=== PATIENT | female | born 1950 | race Caucasian/White ===

== ENCOUNTER 2019-09-14 06:12 | Inpatient (IN) | payer MEDICARE, OTHER ==
[~2019-09-14] VITALS: Ht 167.6 cm; Wt 55.8 kg
[2019-09-14] VITALS (17 sets, daily range): BP systolic 90–141; BP diastolic 39–109
[2019-09-14 07:01] LABS: HEMATOCRIT 35.3 % (37.0-47.0); HEMOGLOBIN 11.6 gm/dL (12.0-15.0); MCH 29.3 pg (26.0-34.0); MCHC 32.8 g/dL (28.0-37.0); MCV 89.2 fL (80.0-100.0); MPV 7.2 fl. (7.2-11.1); NUCLEATED RBCS 0 /100WBC; PLATELET COUNT* 286 thou/uL (150-400); RBC 3.95 mil/uL (4.20-5.00); RDW-CV 20.4 % (10.5-14.5); WBC 7.2 thou/uL (4.0-11.0)
[2019-09-14 07:12] LABS: CALCIUM 8.4 mg/dL (8.5-10.1); CREATININE 2.1 mg/dL (0.6-1.3); POTASSIUM 4.9 mmol/L (3.5-5.1); PROTIME 10.4 Seconds (9.20-11.50)
[2019-09-14 07:20] LABS: ALBUMIN 2.4 g/dL (3.4-5.0); TOTAL BILIRUBIN 1.1 mg/dL (<0.1-1.0); TOTAL PROTEIN 6.3 g/dL (6.4-8.2)
[2019-09-14 07:50] LABS: ABSOLUTE LYMPHOCYTES 0.4 thou/uL (0.8-5.3); ABSOLUTE MONOCYTES 0.1 thou/uL (0.0-1.2); ABSOLUTE NEUTROPHILS 6.7 thou/uL (1.6-8.1); PLATELET ESTIMATE ADEQUATE
[2019-09-14 07:51] LABS: ANISOCYTOSIS 1+; POIKILOCYTOSIS 1+
--- NOTE | 2019-09-14 08:19 | NUR ---
patient sat 71% on room air, patient denies shortness of breath. patient placed on 3L NC now sats are 98%
[2019-09-14 09:10] LABS: BE -5.9 mmol/L (-2 to +3); PCO2 33.8 mmHg (35.0-45.0)
[2019-09-14 09:12] LABS: PO2 129.1 mmHg (75.0-100.0)
[2019-09-14 10:05] LABS: MAGNESIUM 1.7 mg/dL (1.8-2.4); PHOSPHORUS* 4.7 mg/dL (2.5-4.9)
[2019-09-14 11:58] LABS: URINE BLOOD NEGATIVE (Negative); URINE CLARITY CLEAR; URINE COLOR YELLOW; URINE GLUCOSE-RANDOM 3+ (Negative); URINE KETONES 1+ (Negative); URINE LEUKOCYTES-REFLEX TRACE (Negative); URINE NITRITE-REFLEX NEGATIVE (Negative); URINE PROTEIN NEGATIVE (Negative); URINE SPECIFIC GRAVITY >= 1.030 (1.005-1.030); URINE UROBILINOGEN 0.2 E.U./dl (0.2-1.0)
[2019-09-14 12:00] LABS: ICTOTEST (BILI CONFIRMATORY) Negative (Negative); URINE BILIRUBIN 1+ (Negative)
[2019-09-14 12:08] LABS: SQUAMOUS 0-3 Few /LPF (0-3)
[2019-09-14 12:09] LABS: BACTERIA-REFLEX 1-9 Few /HPF (None Seen); CASTS None Seen /LPF (None Seen); CRYSTALS None Seen /LPF (None Seen); MUCUS 0-3 Light strn/LPF (None Seen); URINE RBC 0-2 Rare /HPF (0-2); URINE WBC-REFLEX 6-15 Few /HPF (0-5)
[2019-09-14 13:28] LABS: CALCIUM 7.9 mg/dL (8.5-10.1); CREATININE 2.1 mg/dL (0.6-1.3); POTASSIUM 5.3 mmol/L (3.5-5.1)
[2019-09-14] MEDS ORDERED: LIPITOR40 MG PO (15:11)
[2019-09-14] MEDS ORDERED: CARVEDILOL12.5 MG PO (15:12)
[2019-09-14] MEDS ORDERED: PLAVIX 75 MG TA75 M1 PO (15:13)
[2019-09-14] MEDS ORDERED: DULOXETINE HCL30 MG PO (15:14)
[2019-09-14] MEDS ORDERED: LISINOPRIL2.5 MG PO (15:15)
[2019-09-14] MEDS ORDERED: LEVO-T100 MCG PO (15:17)
[2019-09-14] MEDS ORDERED: OMEPRAZOLE 20 M20 M1 PO (15:25)
[2019-09-14] MEDS ORDERED: TRAZODONE HCL100 MG PO (15:26)
[2019-09-14] MEDS ORDERED: ZANTAC 150MG T150 M1 PO (15:26)
[2019-09-14] MEDS ORDERED: ASA81BEC PO (15:27)
[2019-09-14] MEDS ORDERED: PROCHAMBER1 EACH INH (15:33)
--- NOTE | 2019-09-14 16:40 | 2DMMODE ---
[place] [address] 2 D/M-MODE ECHOCARDIOGRAM Name: BELEN MCNEILL Room: 001[facility] IN .R.#: [id number] Admission: 09/14/19 Attend Phys: Arturo Bradford Discharge: Date of : 54 Date of Service: 09/14/19 1639 Report #: [id number] THIS REPORT FOR: cc: FAM - No family physician/PCP FAM - No family physician/PCP Bill Maharaj MD [facility] ~ APPROVED REPORT Study performed: 09/14/2019 15:54:38 EXAM: Comprehensive 2D, Doppler, and color-flow Echocardiogram Patient Location: In-Patient Room #: 001 Status: routine BSA: 1.63 HR: 100 bpm BP: 119/46 mmHg Rhythm: NSR Other Information Study Quality: Good Indications CAD 2D Dimensions IVSd: 11.15 (7-11mm) LVOT Diam: 19.38 (18-24mm) LVDd: 38.73 mm PWd: 9.02 (7-11mm) Ascending Ao: 26.88 (22-36mm) LVDs: 22.53 (25-40mm) Aortic Root: 28.99 mm Volumes Left Atrial Volume (Systole) LA ESV Index: 28.80 mL/m2 Aortic Valve AoV Peak Prashant.: 1.42 m/s AO Peak Gr.: 8.11 mmHg LVOT Max P.46 mmHg AO Mean Gr.: 4.52 mmHg LVOT Mean P.37 mmHg LVOT Max V: 1.27 m/s AO V2 VTI: 21.77 cm LVOT Mean V: 0.85 m/s ELPIDIO (VTI): 3.32 cm2 LVOT V1 VTI: 24.52 [place] [address] 2 D/M-MODE ECHOCARDIOGRAM Name: BELEN MCNEILL Room: [address]#: [id number] Admission: 09/14/19 Attend Phys: Arturo Bradford Discharge: Date of : 54 Date of Service: 09/14/19 1639 Report #: [id number] Mitral Valve E/A Ratio: 0.82 MV Decel. Time: 248.63 ms MV E Max Prashant.: 0.91 m/s MV PHT: 72.10 ms MVA (PHT): 3.05 cm2 TDI E/Lateral E': 11.38 E/Medial E': 11.38 Medial E' Prashant.: 0.08 m/s Lateral E' Prashant.: 0.08 m/s Pulmonary Valve PV Peak Prashant.: 1.87 m/s PV Peak Gr.: 13.94 mmHg Left Ventricle The left ventricle is normal size. There is normal LV segmental wall motion. There is normal left ventricular wall thickness. Left ventricular systolic function is normal. The left ventricular ejection fraction is within the normal range. LVEF is 60-65%. Grade I - abnormal relaxation pattern. Right Ventricle The right ventricle is normal size. The right ventricular systolic function is normal. Atria The left atrium size is normal. The right atrium size is normal. Aortic Valve Mild aortic valve sclerosis. No aortic regurgitation is present. There is no aortic valvular stenosis. Mitral Valve Mild mitral annular calcification. There is no mitral valve regurgitation noted. No evidence of mitral valve stenosis. Tricuspid Valve The tricuspid valve is normal in structure. Unable to assess PA pressure. Trace tricuspid regurgitation. Pulmonic Valve The pulmonary valve is normal in structure. There is no pulmonic [place]vular [place] [address] 2 D/M-MODE ECHOCARDIOGRAM Name: BELEN MCNEILL Room: [address] IN [facility]#: [id number] Admission: 09/14/19 Attend Phys: Arturo Bradford Discharge: Date of : 54 Date of Service: 09/14/19 1639 Report #: [id number] Great Vessels The aortic root is normal in size. IVC is normal in size and collapses >50% with inspiration. Pericardium There is no pericardial effusion. <Conclusion> The left ventricle is normal size. There is normal left ventricular wall thickness. Left ventricular systolic function is normal. The left ventricular ejection fraction is within the normal range. LVEF is 60-65%. Grade I - abnormal relaxation pattern. The right ventricle is normal size. The left atrium size is normal. Mild aortic valve sclerosis. No aortic regurgitation is present. There is no aortic valvular stenosis. Mild mitral annular calcification. There is no mitral valve regurgitation noted. No evidence of mitral valve stenosis. The tricuspid valve is normal in structure. IVC is normal in size and collapses >50% with inspiration. There is no pericardial effusion. There is normal LV segmental wall motion. <ELECTRONICALLY SIGNED> By: Bill Maharaj MD, FACC 09/14/19 1639 [id number] Bill Maharaj MD, FACC /INF
[2019-09-14 18:14] LABS: CALCIUM 7.7 mg/dL (8.5-10.1)
--- NOTE | 2019-09-14 18:44 | NUR ---
PATIENT PROGRESING WELL TOWARDS GOALS. SUGARS DECREASING AT AN ACCETABLE RATE. DKA PROTOCOL FOLLOWED, FLUIDS CHANGED AT THIS TIME PER LABS. PATIENT NPO AT THIS TIME. ALL QUESTIONS ANSWERED. DAUGHTER AND PCP UPDATED. DAUGHTER ASKED IF WE COULD FAX ORDERS TO PCP AND PULMONARY DOCTOR AFTER SHE D/C. WILL PASS ON IN REPORT TO ONCOMING NURSE. PCP DR MANI ARMENTA FAX #[phone] LISSETTE BAILEY FAX# [phone] HOME MEDICATIONS STILL NEED TO BE REORDERED BY DR COLEMAN.
[2019-09-14 21:24] LABS: CALCIUM 7.8 mg/dL (8.5-10.1); CREATININE 1.8 mg/dL (0.6-1.3); POTASSIUM 4.2 mmol/L (3.5-5.1)
[2019-09-15] VITALS (8 sets, daily range): BP systolic 88–176; BP diastolic 47–96
--- NOTE | 2019-09-15 02:02 | NUR ---
PT. BLADDER SCANNED AGAIN, >600. PHILLIPS CATHETER PLACED WITH DIFFICULTY 18 SURINAMESE. URINE DRAINING WELL AT THIS TIME.
[2019-09-15 02:42] LABS: ABSOLUTE LYMPHOCYTES 0.5 thou/uL (0.8-5.3); ABSOLUTE MONOCYTES 0.7 thou/uL (0.0-1.2); ABSOLUTE NEUTROPHILS 5.8 thou/uL (1.6-8.1); BASOPHILS 0.4 %; EOSINOPHILS 0.6 %; HEMATOCRIT 29.6 % (37.0-47.0); LYMPHOCYTES 6.6 %; MCHC 33.8 g/dL (28.0-37.0); MCV 85.7 fL (80.0-100.0); MONOCYTES 9.8 %; MPV 6.7 fl. (7.2-11.1); NUCLEATED RBCS 0 /100WBC; PLATELET COUNT* 234 thou/uL (150-400); POLYS 82.6 %; RBC 3.45 mil/uL (4.20-5.00)
[2019-09-15 03:02] LABS: CALCIUM 7.5 mg/dL (8.5-10.1); CREATININE 1.6 mg/dL (0.6-1.3)
[2019-09-15 03:04] LABS: POTASSIUM 5.2 mmol/L (3.5-5.1)
[2019-09-15 03:06] LABS: ALBUMIN 2.1 g/dL (3.4-5.0); CALCIUM 7.3 mg/dL (8.5-10.1); CREATININE 1.6 mg/dL (0.6-1.3); POTASSIUM 5.1 mmol/L (3.5-5.1); TOTAL BILIRUBIN 0.6 mg/dL (<0.1-1.0); TOTAL PROTEIN 5.6 g/dL (6.4-8.2)
--- NOTE | 2019-09-15 05:42 | NUR ---
PT. SUDDENLY RESTLESS/STATED SHE CAN'T SLEEP AT 033. HAD SLEPT WELL SINCE 2129. ANXIOUS, NAUSEA. REASSURANCE GIVEN. STATED IT IS NOT RECOMMENDED TO TAKE A SLEEPING PILL AT 0330. VERBAL UNDERSTANDING GIVEN. IVF REMAIN INFUSING. INSULIN GTT INFUSING. PHILLIPS CATHETER DRAINING WELL. WILL CONTINUE TO MONITOR.
[2019-09-15 06:51] LABS: CALCIUM 7.4 mg/dL (8.5-10.1); CREATININE 1.5 mg/dL (0.6-1.3); PHOSPHORUS* 2.6 mg/dL (2.5-4.9); POTASSIUM 4.9 mmol/L (3.5-5.1)
[2019-09-15 09:04] LABS: URINE BILIRUBIN NEGATIVE (Negative); URINE BLOOD 3+ (Negative); URINE CLARITY CLEAR; URINE COLOR YELLOW; URINE GLUCOSE-RANDOM NEGATIVE (Negative); URINE KETONES NEGATIVE (Negative); URINE LEUKOCYTES 1+ (Negative); URINE NITRITE NEGATIVE (Negative); URINE PROTEIN NEGATIVE (Negative); URINE SPECIFIC GRAVITY 1.015 (1.005-1.030); URINE UROBILINOGEN 0.2 E.U./dl (0.2-1.0)
[2019-09-15 09:23] LABS: CASTS None Seen /LPF (None Seen); CRYSTALS None Seen /LPF (None Seen); SQUAMOUS 0-3 Few /LPF (0-3); URINE RBC 0-2 Rare /HPF (0-2); URINE WBC 6-15 Few /HPF (0-5)
[2019-09-15 10:42] LABS: CALCIUM 7.8 mg/dL (8.5-10.1); CREATININE 1.5 mg/dL (0.6-1.3); POTASSIUM 4.8 mmol/L (3.5-5.1)
--- NOTE | 2019-09-15 10:43 | NUR ---
Nutrition: Pt admitted with DKA. Per ICU rounds, pt has had IDDM for ~60yrs, has insulin pump. She got ill and BG went up. Assessed for nsg risk 2 points. Wt is 123#, was 115# at admit with severe volume depletion. She is eating well now. Diet advanced. No nutrition education needed. BG better, alb 2.1, prealb 12. Low nutrition risk.
--- NOTE | 2019-09-15 11:06 | NUR ---
CM ASSESSMENT: PT LIVES HOME ALONE. SHE HAS AN INSULIN PUMP AND CONTROLS HER BG WELL. PT IS INDEPENDENT WITH ADLS. SHE DRIVES AND DOES NOT USE ASSISTIVE DEVICES. SHE STATES SHE GOT SICK AND HER BG INCREASED. PT GETS HER MEDS THROUGH [facility] INCLUDING INSULIN PUMP SUPPLIES.CM WILL CONTINUE TO FOLLOW IF NEEDED
[2019-09-15 14:00] LABS: CREATININE 1.4 mg/dL (0.6-1.3); POTASSIUM 4.9 mmol/L (3.5-5.1)
--- NOTE | 2019-09-15 17:37 | NUR ---
PT ASSESSMENT CHARTED. VSS THROUGHOUT SHIFT, BP IMPROVED. UP WITH 1 ASSIST IN ROOM. PAIN RATED 5/10 AT THE HIGHEST IN HER BACK IMPROVED WITH MOVEMENT AROUND THE ROOM. PT TOLERATING REGULAR DIET WITHOUT DIFFICULTY. NO REPORTS OF NAUSEA. BLOOD SUGARS BEING WELL CONTROLLED WITH SSI. NO OTHER COMPLAINTS. REPORT GIVEN TO ELVIA TREVINO AND TRANSFERED TO ROOM 309 AT 1715.
--- NOTE | 2019-09-15 18:26 | NUR ---
PT TRANSFERED TO ROOM 309 AT 1715. PT ALERT AND ORIENTED X4. ACCU CHECK, INSULIN GIVEN PER ORDERS WITH DINNER. PT DENIES ANY CONCERNS. SITTING IN CHAIR, CALL LIGHT WITHIN REACH. WILL CONTINUE PLAN OF CARE
--- NOTE | 2019-09-16 02:35 | NUR ---
PT'S BG WAS CRITICAL LOW BEGINNING OF SHIFT ON POC. STAT LAB CONFIRMED BG TO BE 27. HYPOGLYCEMIA PROTOCOL INITIATED. BG CAME BACK UP TO 80 ON POC. STAT LAB AGAIN TO VERIFY LEVEL SHOWED BG 108. HS INSULIN NOT GIVEN THIS SHIFT. WILL CONTINUE TO MONITOR.
[2019-09-16 05:12] LABS: CALCIUM 7.5 mg/dL (8.5-10.1); MAGNESIUM 1.5 mg/dL (1.8-2.4); POTASSIUM 4.4 mmol/L (3.5-5.1)
--- NOTE | 2019-09-16 05:31 | NUR ---
PT ALERT AND ORIENTED. STB ASSIST. HYPOGLYCEMIA TREATED PER PROTOCOL. TYLENOL GIVEN TIS AM. PT'S DTR CALLED TO CHECK ON PT. PER PT'S DTR, PT TAKES SOME MEDS FOR RA. PER PT'S DTR, LIST WAS FAXED FROM RA 'S OFFICE AND MIRLANDE BAEZA ON PT'S CHART. LIST FOUND ON PT'S CHART AND VERIFIED WITH PT'S DTR VIA PHONE. ANTICIPATING MEDS TO BE RESTARTED TODAY. FALL PRECAUTION IN PLACE. CALL LIGHT WITHIN REACH. HOURLY ROUNDINGS MADE. WILL CONTINUE TO MONITOR.
[2019-09-16 07:40] VITALS: BP 145/79
[2019-09-16] MEDS ORDERED: ARAVA20 MG PO (08:54)
[2019-09-16] MEDS ORDERED: FOLIC ACID1 MG PO (08:55)
[2019-09-16] MEDS ORDERED: PLAQUENIL200 MG PO (08:55)
--- NOTE | 2019-09-16 13:56 | EKG ---
[place] [address] ELECTROCARDIOGRAM REPORT Name: BELEN MCNEILL Room: [address] IN .R.#: [id number] Admission: 09/14/19 Attend Phys: Arturo Bradford Discharge: Date of : 54 Date of Service: 09/14/19 0622 Report #: [id number] THIS REPORT FOR: cc: YOLANDE - Marielle family physician/PCP FAM - No family physician/PCP Bill Maharaj MD [facility] THIS REPORT FOR: //name// [facility] ED Test Date: 2019-09-14 Test Time: 06:22:25 Pat Name: BELEN MCNEILL Department: Room: [facility] Gender: F Respooler: CARMITA : 1950 Requested By: Joanne Mclaughlin Order Number: [id number] MD: Bill Maharaj Measurements Intervals [place] Rate: 102 P: 93 KS: 138 QRS: 59 QRSD: 87 T: 105 QT: 358 QTc: 467 Interpretive Statements Sinus tachycardia Probable LVH with secondary repol abnrm Anterior Q waves, possibly due to LVH No previous ECG available for comparison Electronically Signed On 09-14-2019 16:10:47 FIRE ENGINE OPERATOR by Bill Maharaj [email or web address] <ELECTRONICALLY SIGNED> By: Bill Maharaj MD, [facility] 09/14/19 1610 1 1 Bill Maharaj MD, [facility] /EPI
[2019-09-16 16:00] VITALS: BP 144/77
--- NOTE | 2019-09-16 16:43 | NUR ---
PATIENT INSTRUCTED ON IS TODAY. PATIENT ENCOURAGED TO GET OUT OF BED BUT REFUSING. PATIENT GIVEN PRN ZOFRAN FOR NAUSEA TODAY. POOR APPETITE. GLUCERNA GIVEN FOR LUNCH TODAY. INSULIN GIVEN REQUIRED. IV'S SL. PHILLIPS REMAINS IN PLACE WITH YELLOW OUTPUT. [address]
[2019-09-16 21:00] VITALS: BP 109/56
[2019-09-17] MEDS ORDERED: MUCINEX600 MG PO (07:51)
[2019-09-17] MEDS ORDERED: AZITHROMYCIN500 MG PO (07:51)
[2019-09-17] MEDS ORDERED: PREDNISONE 20 M20 MG PO (07:51)
[2019-09-17] MEDS ORDERED: PROAIR HFA8.5 GM INH (07:51)
[2019-09-17] MEDS ORDERED: CEFDINIR300 MG PO (07:51)
--- NOTE | 2019-09-17 11:36 | NUR ---
PT.TO BE DISCHARGED TODAY. SHE WILL NEED HOME O2 PER R.T.AFTER DOING RESTING AND EXERCISE SATURATIONS. MIGUEL SPOKE WITH PT. SHE SAID HER MOM HAD OXYGEN AT ONE TIME. PT. CHOSE [facility]. FAXED FACE SHEET,SATURATIONS AND DISCHARGE SUMMARY WITH ORDER TO [facility] [phone]. ASKED FOR PORTABLE TANK TO BE DELIVERED TO ROOM. EXPLAINED [facility] WOULD DELIVER HOME SET UP ONCE SHE GOT HOME.
[2019-09-17 11:39] VITALS: BP 174/112
[2019-09-17 13:43] VITALS: BP 174/112
[2019-09-17 13:49] VITALS: BP 174/112
[2019-09-17 14:29] VITALS: BP 174/112
[2019-09-17 14:45] VITALS: BP 174/112
--- NOTE | 2019-09-17 15:15 | NUR ---
PT A&OX4 VSS. PT UNABLE TO BE WEANED FROM OXYGEN. PT TO USE O2 AT HOME FOLLOWING DC. PT ACCUCHECK, INSULIN ADMINISTERED DIRECTED. PT UP SBA TO [facility] RECLINER. [facility] DELIVERED PORTABLE OXYGEN FOR HOME USE. PULMONARY REHAB CONTACTED FOR THIS PT. IV DC'D PRIOR TO LEAVING UNIT. NO REDNESS/SWELLING NOTED AT SITE. PT INSTRUCTED TO FIND PCP AND SCHEDULE APPT IN 1 WEEK. PT DRESSED INDEPENDENTLY. PT STATES UNDERSTANDING OF DC AND F/U INSTRUCTIONS. PT TRANSPORTED FROM UNIT IN W/C WITH PORTABLE O2 FOR HOME USE.
== END 2019-09-17 14:45 | disposition home or self-care (01) | DRG 871 ==
LOC: M.ERS 06:12 → M.ICU 09:57 → M.TBA-ER 09:57 → M.ICU 12:58 → M.3W 09-15 17:31
PROVIDERS: Emergency Medicine; Internal Medicine; Personal Emergency Response Attendant; ADMIT Internal Medicine
DX: A41.9 Sepsis, unspecified organism (principal); N17.0 Acute kidney failure with tubular necrosis; J96.01 Acute respiratory failure with hypoxia; J15.6 Pneumonia due to other Gram-negative bacteria; J44.1 Chronic obstructive pulmonary disease with (acute) exacerbation; G91.9 Hydrocephalus, unspecified; J44.0 Chronic obstructive pulmonary disease with (acute) lower respiratory infection; I25.10 Atherosclerotic heart disease of native coronary artery without angina pectoris; E86.9 Volume depletion, unspecified; M19.90 Unspecified osteoarthritis, unspecified site; M06.9 Rheumatoid arthritis, unspecified; E10.65 Type 1 diabetes mellitus with hyperglycemia; E78.5 Hyperlipidemia, unspecified; Z88.5 Allergy status to narcotic agent; I25.2 Old myocardial infarction; Z88.0 Allergy status to penicillin; Z79.899 Other long term (current) drug therapy; Z79.82 Long term (current) use of aspirin; Z83.6 Family history of other diseases of the respiratory system; Z87.891 Personal history of nicotine dependence; Z95.5 Presence of coronary angioplasty implant and graft; Z79.2 Long term (current) use of antibiotics; Z79.51 Long term (current) use of inhaled steroids; Z98.2 Presence of cerebrospinal fluid drainage device; Z79.4 Long term (current) use of insulin